=== PATIENT | female | born 1990 | race Caucasian/White ===

== ENCOUNTER 2018-08-30 09:06 | Outpatient (CLI) | payer BC ==
--- NOTE | 2018-08-30 10:07 | RAD ---
2 VIEWS RIGHT TIBIA AND FIBULA: Date: 08/30/18 COMPARISON: None. HISTORY: Pain in right leg. FINDINGS: 2 views right tibia/fibula show no evidence of acute fracture or dislocation. No soft tissue swelling is seen. No degenerative changes are present. IMPRESSION: Unremarkable exam. POS: LOC
--- NOTE | 2018-08-30 10:08 | RAD ---
2 VIEWS LEFT TIBIA AND FIBULA: Date: 08/30/18 HISTORY: Left leg pain. FINDINGS: 2 views left tibia/fibula show no evidence of acute fracture or dislocation. No soft tissue swelling seen. No degenerative changes are present. IMPRESSION: Unremarkable exam. POS: LOC
== END 2018-08-30 09:07 | disposition home or self-care (01) ==
LOC: SCSRAD 09:06
PROVIDERS: ATTEND Physician Assistant
DX: M79.604 Pain in right leg (principal); M79.605 Pain in left leg

== ENCOUNTER 2020-01-25 19:43 | Emergency (ER) | payer BC ==
[2020-01-25] MEDS ORDERED: Ketorolac Tromethamine 30 MG/ML VIAL ONE (20:38)
[2020-01-25] MEDS ORDERED: diphenhydrAMINE 50 MG/ML VIAL ONE (20:38)
[2020-01-25] MEDS ORDERED: Metoclopramide HCl 10 MG/2 ML VIAL ONE (20:38)
== END 2020-01-25 21:49 | disposition home or self-care (01) ==
LOC: ERS 19:43
DX: G43.909 Migraine, unspecified, not intractable, without status migrainosus (principal); I10 Essential (primary) hypertension; F32.9 Major depressive disorder, single episode, unspecified; Z79.899 Other long term (current) drug therapy
CPT/HCPCS: 96365; 96375; J1200; J1885; J2765

== ENCOUNTER 2020-02-08 09:26 | Emergency (ER) | payer BC ==
--- NOTE | 2020-02-08 10:56 | ULT ---
DOPPLER VENOUS ULTRASOUND RIGHT UPPER EXTREMITY INDICATION: History of edema and pain in the right elbow TECHNIQUE: Grayscale, color Doppler spectral Doppler images were obtained of the right internal jugul ar vein, right subclavian vein, right axillary vein, right brachial vein, right basilic vein, right ulnar vein and right radial vein. FINDINGS: There is partially occlusive thrombus seen involving the right basilic vein from the upper arm through the mid to proximal right forearm. The remaining venous segments of the right upper extremity are patent without evidence of venous thrombosis. IMPRESSION: Partially occlusive thrombus involving the right basilic vein from the upper arm to the m id forearm.
== END 2020-02-08 13:50 | disposition home or self-care (01) ==
LOC: ERS 09:26
DX: I82.621 Acute embolism and thrombosis of deep veins of right upper extremity (principal); I10 Essential (primary) hypertension; F32.9 Major depressive disorder, single episode, unspecified; F41.9 Anxiety disorder, unspecified; Z87.891 Personal history of nicotine dependence; Z79.899 Other long term (current) drug therapy

== ENCOUNTER 2021-01-13 04:06 | Observation (INO) | payer BC ==
[2021-01-13] MEDS ORDERED: methylPREDNISolone Sod Succ/PF 125 MG/2 ML VIAL ONE (04:33)
[2021-01-13] MEDS ORDERED: diphenhydrAMINE 50 MG/ML VIAL ONE (04:33)
[2021-01-13] MEDS ORDERED: Famotidine/PF 20 mg/2ml Vial ONE (04:33)
[2021-01-13 09:27] LABS: #Lymphocytes 0.9 thou/uL (1.20-3.40); #Monocytes 0.1 thou/uL (0.11-0.59); #Neutrophils 9.8 thou/uL (1.40-6.50); %Basophils 0.1 % (0.0-1.0); %Eosinophils 0.2 % (0.0-10.0); %Lymphocytes 8.6 % (21.0-51.0); %Monocytes 0.7 % (0.0-10.0); %Neutrophils 90.4 % (42.0-75.0); Mean Corpuscular HGB CONC 32.6 g/dL (32.0-36.0); Mean Corpuscular Hemoglobin 24.9 pg (27.0-31.0); Mean Corpuscular Volume 76.2 fL (78.0-98.0); Platelet Count 340 thou/uL (130-400); RBC Distribution Width 14.4 % (11.5-14.5); Red Blood Cell (RBC) Count 5.21 mill/uL (4.20-5.40); White Blood Cell (WBC) Count 10.9 thou/uL (4.8-10.8)
[2021-01-13 09:50] LABS: ALT (SGPT) 16 U/L (8-55); AST (SGOT) 14 U/L (5-34); Albumin 4.4 g/dL (3.5-5.0); Alkaline Phosphatase 66 U/L (40-110); Anion Gap 15 mmol/L (10-20); BUN (Urea Nitrogen) 9 mg/dL (7.0-18.7); Bilirubin, Total 0.6 mg/dL (0.2-1.2); Calc. Creatinine Clearance 0 mL/min (70-130); Calcium 9.8 mg/dL (7.8-10.44); Carbon Dioxide 23 mmol/L (22-29); Chloride 104 mmol/L (98-107); Globulin 3.8 g/dL (2.4-3.5); Glucose 188 mg/dL (70-105); Potassium 4.9 mmol/L (3.5-5.1); Protein, Total 8.2 g/dL (6.0-8.3); Sodium 137 mmol/L (136-145)
[2021-01-13 13:13] VITALS: BMI 32.4
[2021-01-13] MEDS ORDERED: Dextrose 5 % And 0.9 % NaCl 1,000 ML IV SCH (13:30)
[2021-01-13] MEDS ORDERED: Ondansetron PF 4 MG/2 ML Vial IVP PRN (13:48)
[2021-01-13] MEDS ORDERED: Acetaminophen 325 MG TAB PO PRN (13:49)
[2021-01-13] MEDS ORDERED: Ondansetron PF 4 MG/2 ML Vial IVP SCH (14:00)
[2021-01-13] MEDS ORDERED: FLU VACC QS2021-22(6MOS UP)/PF 60 MCG/0.5 ML SYRINGE IM ONE (14:00)
[2021-01-13 23:12] LABS: SARS-CoV-2 PCR by NAA Not Detected (NotDetected)
[2021-01-14 11:34] VITALS: BP 147/93; TEMP 97.9
[2021-01-14] MEDS ORDERED: Cephalexin 250 MG CAP PO SCH (12:00)
[2021-01-14] MEDS ORDERED: Rivaroxaban 10 MG TAB PO SCH (15:30)
== END 2021-01-14 15:49 | disposition home or self-care (01) ==
LOC: ERS 04:06 → ERHOLD 06:27 → 2SE 13:02
PROVIDERS: ADMIT Internal Medicine; ATTEND Internal Medicine
DX: T78.3XXA Angioneurotic edema, initial encounter (principal); I10 Essential (primary) hypertension; G43.909 Migraine, unspecified, not intractable, without status migrainosus; I82.612 Acute embolism and thrombosis of superficial veins of left upper extremity; F41.9 Anxiety disorder, unspecified; F32.A Depression, unspecified; Z20.822 Contact with and (suspected) exposure to COVID-19; Z88.8 Allergy status to other drugs, medicaments and biological substances; Z88.1 Allergy status to other antibiotic agents; Z79.899 Other long term (current) drug therapy; Z87.891 Personal history of nicotine dependence
CPT/HCPCS: 36415; 80053; 85025; 86160; 96374; 96375; G0378; J1200; J2930; J7042; S0028; U0003; U0005